=== PATIENT | female | born 1975 | race Caucasian/White ===

== ENCOUNTER → 2018-09-14 15:24 | Outpatient (CLI) | payer OTHER, SELFPAY ==
--- NOTE | 2018-09-14 | DI.MG.S_ITS ---
BILATERAL DIGITAL SCREENING MAMMOGRAM 3D/2D WITH CAD: 09/14/2018 CLINICAL: Baseline exam. Routine screening. No prior exams were available for comparison. The tissue of both breasts is heterogeneously dense. This may lower the sensitivity of mammography. Current study was also evaluated with a Computer Aided Detection (CAD) system. There are benign calcifications in both breasts. No significant masses, calcifications, or other findings are seen in either breast. IMPRESSION: There is no mammographic evidence of malignancy. A 1 year screening mammogram is recommended. This exam was interpreted at Station ID: [id number]. NOTE: For mammograms, a report in lay terms will be sent to the patient. Approximately 15% of breast malignancies will not be visualized mammographically. In the management of a palpable breast mass, a negative mammogram must not discourage biopsy of a clinically suspicious lesion. Electronically Signed By: Manan lorenz/sergey:09/14/2018 22:47:21 letter sent: Normal Exam ACR BI-RADS Category 2: Benign Finding(s) 3342F
== END ==
PROVIDERS: PCP Physician Assistant Medical; Visit Provider Physician Assistant Medical
DX: Z12.31 Encounter for screening mammogram for malignant neoplasm of breast (principal)
CPT/HCPCS: 77063; 77067

== ENCOUNTER → 2022-10-08 14:17 | Outpatient (CLI) | payer OTHER, SELFPAY ==
--- NOTE | 2022-10-08 | DI.MG.S_ITS ---
BILATERAL DIGITAL SCREENING MAMMOGRAM 3D/2D WITH CAD: 10/08/2022 CLINICAL: Routine screening. Comparison is made to exam dated: 09/14/2018 mammogram - [facility]. Both breasts are heterogeneously dense, which may obscure small masses (category c / 51-75% glandular tissue). Current study was also evaluated with a Computer Aided Detection (CAD) system. There are benign calcifications in both breasts. No significant masses, calcifications, or other findings are seen in either breast. There has been no significant interval change. IMPRESSION: BENIGN There is no mammographic evidence of malignancy. A 1 year screening mammogram is recommended. Based on the Tyrer Cuzick model (a risk assessment model) the patient's lifetime risk is 12.1% and her 10 year risk is 2.3%. According to the ACR, ACS, and NCCN guidelines, an annual breast MRI exam along with mammogram is recommended if the patient's lifetime risk is 20% or greater. This exam was interpreted at Station ID: [id number]. NOTE: For mammograms, a report in lay terms will be sent to the patient. Approximately 15% of breast malignancies will not be visualized mammographically. In the management of a palpable breast mass, a negative mammogram must not discourage biopsy of a clinically suspicious lesion. Electronically Signed By: Floyd gonzales/sergey:10/08/2022 15:10:26 letter sent: Normal Exam ACR BI-RADS Category 2: Benign Finding(s) 3342F
== END ==
PROVIDERS: PCP Internal Medicine; Referring Provider Internal Medicine; Visit Provider Internal Medicine
DX: Z12.31 Encounter for screening mammogram for malignant neoplasm of breast (principal)
CPT/HCPCS: 77063; 77067

== ENCOUNTER 2024-07-18 09:57 | Day surgery (SDC) | payer OTHER, SELFPAY ==
[2024-07-18] MEDS: LACTATED RINGERS 1,000 ML 42 ML IV (10:55)
[2024-07-18 11:09] VITALS: BP 116/72; PULSE 59; RESP 16; TEMP 36.5; O2SAT 96
--- NOTE | 2024-07-18 11:22 | P.HP_ITS ---
History of Present Illness History of Present Illness Date Patient Seen: 07/18/24 Time Patient Seen: 11:25 Chief complaint: SDC Narrative: Colon cancer screening, had a previous scope for change in bowel habits, no family history for colon cancer. [facility] Medical History Insomnia Chronic anxiety COVID-19 Acne Ankle pain Painful menstrual periods Hemorrhoid Uncomplicated opioid dependence HPV test positive Abnormal Pap smear of cervix (~2018) Chronic back pain GERD without esophagitis Menorrhagia Asthma, mild Surgical History Anesthesia History of ankle surgery H/O thumb surgery S/P carpal tunnel release Family History Father Hypertension Mother Diabetes mellitus Hypertension Hyperlipidemia Social History Smoking Status: Former smoker Meds Home Medications and Allergies Home Medications Medication Instructions Recorded Confirmed Type albuterol sulfate 90 mcg/actuation 2 puff inhalation Q4-6H PRN asthma 06/17/21 07/18/24 History aerosol inhaler (Ventolin HFA) ibuprofen 200 mg capsule 600 mg PO DAILY PRN Pain (Scale 06/17/21 07/18/24 History Score 4-6) omeprazole 40 mg capsule,delayed 40 mg PO DAILY #90 caps 07/13/23 07/18/24 Rx release nystatin 100,000 unit/gram topical 1 applic topical BID PRN fungal 11/02/23 07/18/24 Rx cream rash #30 grams oxycodone 10 mg tablet 10 mg PO BID #60 tabs 12/28/23 07/18/24 Rx oxycodone 10 mg tablet 10 mg PO BID #60 tabs 06/05/24 06/05/24 Rx oxycodone 10 mg tablet 10 mg PO BID pain #60 tabs 06/05/24 06/05/24 Rx oxycodone 10 mg tablet 10 mg PO BID pain #60 tabs 06/05/24 06/05/24 Rx Allergies Allergy/AdvReac Type Severity Reaction Status Date / Time No Known Drug Allergies Allergy Verified 07/18/24 11:01 Review of Systems Review of Systems ROS: Yes All systems reviewed with the patient and are negative except as otherwise documented Exam Vital Signs (past 8 hours): - 07/18/24 11:09 Temperature 97.7 F Pulse Rate 59 L Respiratory Rate 16 Blood Pressure 116/72 Pulse Oximetry 96 Oxygen Delivery Method Room Air Oxygen Delivery Method Room Air Const General: cooperative, healthy appearing and comfortable [facility] Head: normocephalic and atraumatic Eyes General: appearance normal, both eyes and all related structures Sclera: sclerae normal Neck Neck: trachea midline Resp Effort & Inspection: normal respiratory effort and able to speak in complete sentences Cardio Rate: regular rate Rhythm: regular rhythm GI Palpation: soft and No tender Skin General: turgor normal and No atrophy Neuro General: patient alert, patient awake and patient oriented x3 Cognition: normal cognition Psych Mental Status: mental status grossly normal Affect: normal affect Judgment: judgment good Assessment & Plan Assessment & Plan narrative: Colon cancer screening with colonoscopy using anesthesia Time-Based Coding :: [TOTAL MINUTES] spent with patient and on the chart (including review of chart, obtaining history, exam, reviewing outside data, placing orders, documenting exam and treatment plan, and counseling patient) on [DATE].
--- NOTE | 2024-07-18 11:41 | PM.OP.COLON ---
Operative Date/Time/Diagnoses Date of procedure: 07/18/24 Time of procedure: 11:41 Pre-op diagnosis: Colon cancer screening Post-op diagnosis: same Procedure & Clinicians Study performed: Colonoscopy with anesthesia Same procedure as scheduled: Yes Indications: Colon cancer screening Surgeon: Trinh Desir Procedure Notes Procedure in detail: Preop diagnosis: Colon cancer screening Postop diagnosis: Same Operative procedure: Colonoscopy with anesthesia Surgeon: Adali Desir MD Findings: Normal colonoscopy. No polyps identified. Scant diverticulosis Procedure: Patient placed in lateral position. Rectal exam performed showing normal tone no masses. There were grade 2 hemorrhoidal tissue. Scope was inserted in to the rectum and advanced to ileocecal valve with minimal difficulty. Insufflation extraction of the scope including retroflex and the above findings. Impression: No polyps identified. No significant diverticulosis. Plan: Repeat colonoscopy in 10 years unless otherwise indicated by change in clinical condition or family history. Specimen(s): none sent Complications: none Post-procedure Recommendations: Colonoscopy in 10 years Follow up: as needed Disposition: PACU
[2024-07-18 11:45] VITALS: BP 115/57; PULSE 72; RESP 19; TEMP 37; O2SAT 98
[2024-07-18 11:50] VITALS: BP 107/68; PULSE 64; RESP 25; O2SAT 100
[2024-07-18 11:55] VITALS: BP 128/69; PULSE 55; RESP 20; O2SAT 100
[2024-07-18 12:00] VITALS: BP 132/68; PULSE 62; RESP 17; O2SAT 100
[2024-07-18 12:05] VITALS: BP 140/83; PULSE 52; RESP 18; TEMP 37.1; O2SAT 100
== END 2024-07-18 12:14 | disposition home or self-care (01) ==
PROVIDERS: Surgery; PCP Internal Medicine; Referring Provider Surgery; Visit Provider Surgery
PROC: 0DJD8ZZ Inspection of Lower Intestinal Tract, Via Natural or Artificial Opening Endoscopic (ICD-10-PCS; CPT 45378; principal; 2024-07-18 11:15)
DX: Z12.11 Encounter for screening for malignant neoplasm of colon (principal); K57.30 Diverticulosis of large intestine without perforation or abscess without bleeding; K64.1 Second degree hemorrhoids
CPT/HCPCS: 45378; J2704

== ENCOUNTER → 2025-11-13 15:11 | Outpatient (CLI) | payer OTHER, SELFPAY ==
--- NOTE | 2025-11-13 15:12 | DI.MG.S_ITS ---
MM screening mammo BI: 11/13/2025. BI-RADS: 2 CLINICAL: 50-year old female for bilateral screening mammogram. Tyrer-Cuzick lifetime risk of 9.1%. No personal or first-degree family history of breast cancer. PRIOR EXAMS 10/08/2022, 09/14/2018. MAMMOGRAPHY TECHNIQUE: 2D and 3D (tomosynthesis) digital mammographic views obtained, with additional images as needed for full coverage. Current study was also evaluated with a Computer Aided Detection (CAD) system. DENSITY C. The breasts are heterogeneously dense, which may obscure small masses. MAMMOGRAPHY FINDINGS Bilateral: Benign-appearing calcifications noted. There are no suspicious masses, calcifications, or other findings in the breast. IMPRESSION: * No evidence of malignancy with benign findings. RECOMMENDATIONS Bilateral * Annual screening mammography. OVERALL ASSESSMENT CATEGORY BI-RADS-2: Benign. The [employer] recommends annual screening mammography beginning at age 40 for women with average risk of breast cancer. ELECTRONICALLY SIGNED: Floyd Araya M.D. on 11/14/2025 at 01:45:07 PM PT Interpreting Station ID: [id number]
== END ==
PROVIDERS: PCP Internal Medicine; Referring Provider Internal Medicine; Visit Provider Internal Medicine
DX: Z12.31 Encounter for screening mammogram for malignant neoplasm of breast (principal); R92.333 Mammographic heterogeneous density, bilateral breasts
CPT/HCPCS: 77063; 77067